=== PATIENT | male | born 1955 | race Two or more races ===

== ENCOUNTER 2022-08-04 08:31 | Emergency (ER) | payer MEDICARE, OTHER ==
[~2022-08-04] VITALS: Ht 165.1 cm; Wt 65.3 kg
--- NOTE | 2022-08-04 08:45 | NUR ---
RECEIVED PT came from home with doughter c/o abdomin pain and constipation for 5days awake and alert
[2022-08-04] MEDS ORDERED: ONDANSETRON HCL/PF 4 MG/2 ML VIAL IVP ONE (09:00)
[2022-08-04] MEDS ORDERED: MORPHINE SULFATE INJ 2 MG/ML DISP.SYRIN IV ONE (09:00)
[2022-08-04] MEDS ORDERED: ONDANSETRON HCL/PF 4 MG/2 ML VIAL ONE (09:05)
[2022-08-04] MEDS ORDERED: MORPHINE SULFATE INJ 2 MG/ML DISP.SYRIN ONE (09:05)
--- NOTE | 2022-08-04 09:12 | NUR ---
TO CT SCAN OF ABDOMIN V
[2022-08-04 09:32] LABS: BASOPHILS # (AUTO) 0.1 K/uL (0.0-0.2); BASOPHILS % (AUTO) 0.6 % (0.0-2.0); EOSINOPHILS % (AUTO) 1.7 % (0.0-6.0); HEMATOCRIT 32 % (39-51); LYMPHOCYTES # (AUTO) 1.5 K/uL (0.8-4.8); LYMPHOCYTES % (AUTO) 12.9 % (20.0-44.0); MEAN CORPUSCULAR HGB CONC 34 g/dl (31.0-36.0); MEAN CORPUSCULAR VOLUME 86 fL (80-96); MONOCYTES % (AUTO) 8.5 % (2.0-12.0); NEUTROPHILS # (AUTO) 9.1 K/uL (1.8-8.9); NEUTROPHILS % (AUTO) 76.3 % (43.0-81.0); PLATELET COUNT (AUTO) 260 K/uL (150-450); RED BLOOD CELL COUNT(AUTO) 3.79 MIL/uL (4.5-6.0); WHITE BLOOD COUNT (AUTO) 11.9 K/uL (4.3-11.0)
--- NOTE | 2022-08-04 09:41 | NUR ---
Quevedo on rt upper arm with good bruite LAST HD ON Friday08/02/22
[2022-08-04 10:34] LABS: CALCIUM, SERUM 8.9 mg/dL (8.5-10.1); POTASSIUM 3.8 mmol/L (3.5-5.1)
--- NOTE | 2022-08-04 10:40 | NUR ---
CR.7.7 DR. TAYLOR NOTEFED
[2022-08-04 10:41] LABS: ALBUMIN 3.8 g/dL (3.4-5.0); BILIRUBIN,DIRECT 0.1 mg/dL (0.0-0.2); BILIRUBIN,TOTAL 0.3 mg/dL (0.2-1.0); TOTAL PROTEIN, SERUM 8.1 g/dL (6.4-8.2)
[2022-08-04 10:44] LABS: CREATININE 7.7 mg/dL (0.6-1.3)
--- NOTE | 2022-08-04 11:20 | NUR ---
C/O abdominale pain DR. TAYLOR notefed
--- NOTE | 2022-08-04 11:35 | NUR ---
pt resting and asleepy
--- NOTE | 2022-08-04 12:25 | NUR ---
PT HAD F/C TO LEG bag UA sent to lab
[2022-08-04 13:12] LABS: BILIRUBIN,URINE NEGATIVE (NEGATIVE); COLOR,URINE YELLOW (YELLOW); LEUKOCYTE ESTERASE ,URINE NEGATIVE (NEGATIVE); NITRITE, URINE NEGATIVE (NEGATIVE); PROTEIN,URINE 100 mg/dl (NEGATIVE); UGLUCOSE 250 MG/DL mg/dL (NEGATIVE); UROBILINOGEN,URINE 0.2 EU/dL (0.2)
[2022-08-04 13:15] LABS: BACTERIA,URINE None seen /HPF (None Seen); RBC,URINE 0-2 /HPF (0-2); SQUAMOUS EPITHELIAL CELL,UR Few /HPF (None Seen); WBC,URINE 0-2 /HPF (0-3)
--- NOTE | 2022-08-04 14:00 | NUR ---
at bed side PER Rectum examin done no active bleeding no rectal pain
[2022-08-04] MEDS ORDERED: BISA10SU61 RC (15:05)
--- NOTE | 2022-08-04 16:50 | NUR ---
Amblte to BR NO PAIN
--- NOTE | 2022-08-04 17:04 | NUR ---
[facility] FOR LAB result
--- NOTE | 2022-08-04 18:20 | NUR ---
IV removed. Catheter intact and site benign. Pressure and 4x4 applied to site. No bleeding noted.
--- NOTE | 2022-08-04 18:22 | NUR ---
Patient discharged to home in stable condition. Written and verbal after care instructions given. Patient verbalizes understanding of instruction.
[2022-08-04 18:27] VITALS: BP 169/91
== END 2022-08-04 18:39 | disposition home or self-care (01) ==
LOC: ER 08:31
DX: K59.00 Constipation, unspecified (principal); R10.84 Generalized abdominal pain; E11.22 Type 2 diabetes mellitus with diabetic chronic kidney disease; I12.0 Hypertensive chronic kidney disease with stage 5 chronic kidney disease or end stage renal disease; N18.6 End stage renal disease; I25.2 Old myocardial infarction; Z99.2 Dependence on renal dialysis; Z79.899 Other long term (current) drug therapy
CPT/HCPCS: 99285; 74176; 96374; 96375; 85025; 80048; 83605; 83690; 80076; 81001; 36415; J2405; J2270